=== PATIENT | male | born 1990 ===

== ENCOUNTER 2017-12-23 19:45 | Emergency (ER) | payer MEDICAID ==
[2017-12-23 19:57] VITALS: TEMP 99.7
[2017-12-23 20:32] LABS: VENOUS BLOOD GAS PO2 71 mm/Hg (30-55)
[2017-12-23 20:35] LABS: ALB/GLOB RATIO 1.2 (1.1-1.8); ALBUMIN 3.9 g/dL (3.0-4.8); ALT/SGPT 52 U/L (7-56); AST/SGOT 30 U/L (17-59); BLOOD UREA NITROGEN 17 mg/dL (7-21); CALCIUM 8.8 mg/dL (8.4-10.5); GFR AFRICAN-AMERICAN > 60; GFR NON-AFRICAN AMERICAN > 60
[2017-12-23 20:47] LABS: B-TYPE NATRIURETIC PEPTIDE 14.1 pg/mL (0-450); TROPONIN I < 0.01 ng/mL
[2017-12-23 20:57] LABS: BASO # 0.02 K/mm3 (0.0-2.0); BASO % 0.2 % (0.0-3.0); EOS # 0.2 (0.0-0.7); EOS % 2.6 % (1.5-5.0); GRAN # 4.75 (1.4-6.5); GRAN % 52.3 % (50.0-68.0); HEMOGLOBIN 13.5 g/dL (14.0-18.0); LYMPH # 3.5 (1.2-3.4); LYMPH % 38.6 % (22.0-35.0); MEAN CELL VOLUME 84.8 fl (80.0-105.0); MEAN CORPUSCULAR HEMOGLOBIN 28.8 pg (25.0-35.0); MEAN PLATELET VOLUME 10.6 fl (7.0-11.0); MONO # 0.6 (0.1-0.6); MONO % 6.3 % (1.0-6.0); RBC 4.68 10^6/uL (3.5-6.1); RED CELL DISTRIBUTION WIDTH 13.4 % (11.5-14.5); WHITE BLOOD COUNT 9.1 10^3/ul (4.5-11.0)
[2017-12-23 21:04] LABS: INR 0.97 (0.93-1.08); PARTIAL THROMBOPLASTIN TIME 29.5 Seconds (25.1-36.5); PROTHROMBIN TIME 11.1 SECONDS (9.4-12.5)
--- NOTE | 2017-12-23 21:56 | ED PDOC ---
Arrival/HPI <KaylynDimitry - Last Filed: 12/24/17 00:15> - General Historian: Patient <Cydney Lopez - Last Filed: 12/24/17 01:41> - General Chief Complaint: Shortness Of Breath Time Seen by Provider: 12/23/17 19:53 - History of Present Illness Narrative History of Present Illness (Text): 12/23/17 21:56 27yo morbidly obese male with past medical history of hypertension, sleep apnea present with complaint of palpitation. States he woke up with palpation and shortness of breath. He however denies chest pain, diaphoresis, LE edema, calf pain, fever, chills, nausea, vomiting, recent travel/surgery, dizziness, focal weakness, ripping upper back pain, fever, chills, any other complaint. ( Cydney Lopez A) Past Medical History - Provider Review Nursing Documentation Reviewed: Yes - Infectious Disease Hx of Infectious Diseases: None - Psychiatric Hx Substance Use: No - Anesthesia Hx Anesthesia: No <JessicaCydney Cotto - Last Filed: 12/24/17 01:41> Family/Social History - Physician Review Nursing Documentation Reviewed: Yes Family/Social History: Unknown Family HX Smoking Status: Never Smoked Hx Alcohol Use: Yes Frequency of alcohol use: Socially Hx Substance Use: No <JessicaCydney Cotto - Last Filed: 12/24/17 01:41> Allergies/Home Meds <Dimitry Patiño - Last Filed: 12/24/17 00:15> <JessicaCydney A - Last Filed: 12/24/17 01:41> Allergies/Adverse Reactions: Allergies No Known Allergies Allergy (Verified 12/23/17 19:51) Home Medications: Home Meds Medication Instructions Recorded Confirmed Losartan [Cozaar] 1 tab PO DAILY 12/23/17 12/23/17 Review of Systems - Physician Review All systems were reviewed & negative as marked: Yes - Review of Systems Constitutional: Normal Eyes: Normal ENT: Normal Respiratory: SOB. absent: Cough, Sputum Cardiovascular: Palpitations. absent: Chest Pain, Edema, Calf Pain, Orthopnea Gastrointestinal: Normal Genitourinary Male: Normal Musculoskeletal: Normal Skin: Normal Neurological: Normal Endocrine: Normal Hemo/Lymphatic: Normal Psychiatric: Normal <Cydney Lopez Yadiel - Last Filed: 12/24/17 01:41> Physical Exam Vital Signs Reviewed: Yes Temperature: Afebrile Blood Pressure: Normal Pulse: Regular Respiratory Rate: Normal Appearance: Positive for: Well-Appearing, Non-Toxic, Comfortable Pain Distress: None Mental Status: Positive for: Alert and Oriented X 3 - Systems Exam Head: Present: Atraumatic, Normocephalic Pupils: Present: PERRL Extroacular Muscles: Present: EOMI Conjunctiva: Present: Normal Mouth: Present: Moist Mucous Membranes Neck: Present: Normal Range of Motion Respiratory/Chest: Present: Clear to Auscultation, Good Air Exchange. No: Respiratory Distress, Accessory Muscle Use, Wheezes, Decreased Breath Sounds, Rales, Retracting, Rhonchi, Tachypneic Cardiovascular: Present: Regular Rate and Rhythm, Normal S1, S2. No: Murmurs Abdomen: No: Tenderness, Distention, Peritoneal Signs Back: Present: Normal Inspection Upper Extremity: Present: Normal Inspection. No: Cyanosis, Edema Lower Extremity: Present: Normal Inspection. No: Edema Neurological: Present: GCS=15, CN II-XII Intact, Speech Normal Skin: Present: Warm, Dry, Normal Color. No: Rashes Psychiatric: Present: Alert, Oriented x 3, Normal Insight, Normal Concentration <Cyndey Lopez A - Last Filed: 12/24/17 01:41> Vital Signs Temp Pulse Resp BP Pulse Ox 12/23/17 22:09 90 18 137/88 100 12/23/17 19:52 99.7 F H 103 H 21 145/85 98 Medical Decision Making <Dimitry Patiño - Last Filed: 12/24/17 00:15> <Cydney Lopez - Last Filed: 12/24/17 01:41> ED Course and Treatment: 12/24/17 01:39 PT in Emergency department for stated history. He was not in any distress in Emergency department. Hemodynamically stable. Lab was unremarkable EKG Sinus tacy @104bpm NSTEMI Result was DW the pt. He denied chest pain in Emergency department. He was advised to f/u with a clutch specialist for possible holter monitor. (Cydney Lopez A) - Lab Interpretations Lab Results: 12/23/17 20:10 12/23/17 20:10 Lab Results 12/23/17 20:10: Sodium 141, Chloride 103, Potassium 3.8, Carbon Dioxide 28, Anion Gap 14, BUN 17, Creatinine 0.7 L, Est GFR ( Amer) > 60, Est GFR ( Non-Af Amer) > 60, Random Glucose 127 H, Calcium 8.8, Magnesium 2.1, Total Bilirubin 0.4, AST 30, ALT 52, Alkaline Phosphatase 72, Lactate Dehydrogenase 561, Total Creatine Kinase 79, Troponin I < 0.01, NT-Pro-B Natriuret Pep 14.1, Total Protein 7.1, Albumin 3.9, Globulin 3.2, Albumin/Globulin Ratio 1.2 12/23/17 20:10: pO2 71 H, VBG pH 7.40, VBG pCO2 48.0, VBG HCO3 29.7 H, VBG Total CO2 31.2 H, VBG O2 Sat (Calc) 96.3 H, VBG Base Excess 4.0 H, VBG Potassium 3.7, Sodium 140.0, Chloride 105.0, Glucose 125 H, Lactate 1.3, FiO2 21.0, Venous Blood Potassium 3.7 12/23/17 20:10: PT 11.1, INR 0.97, APTT 29.5, D-Dimer, Quantitative 90 12/23/17 20:10: WBC 9.1, RBC 4.68, Hgb 13.5 L, Hct 39.7 L, MCV 84.8, MCH 28.8, MCHC 34.0, RDW 13.4, Plt Count 280, MPV 10.6, Gran % 52.3, Lymph % (Auto) 38.6 H , [place] % (Auto) 6.3 H, Eos % (Auto) 2.6, Baso % (Auto) 0.2, Gran # 4.75, Lymph # (Auto) 3.5 H, [place] # (Auto) 0.6, Eos # (Auto) 0.2, Baso # (Auto) 0.02 - RAD Interpretation Radiology Orders: 12/23/17 20:35 CHEST PORTABLE [RAD] Stat - PA / YARD PILOT / Resident Statement / has reviewed & agrees with the documentation as recorded. <Dimitry Patiño - Last Filed: 12/24/17 00:15> Disposition/Present on Arrival <Dimitry Patiño - Last Filed: 12/24/17 00:15> - Present on Arrival Any Indicators Present on Arrival: No History of DVT/PE: No History of Uncontrolled Diabetes: No Urinary Catheter: No History of Decub. Ulcer: No History Surgical Site Infection Following: None - Disposition Have Diagnosis and Disposition been Completed?: Yes Disposition Time: 22:00 Patient Plan: Discharge <Cydney Lopez - Last Filed: 12/24/17 01:41> - Disposition Diagnosis: Palpitation Disposition: HOME/ ROUTINE Patient Problems: Current Active Problems Problem Status Onset Palpitation Acute Condition: STABLE Discharge Instructions (ExitCare): Palpitations Additional Instructions: Follow up with your Doctor/Petrography Teacher Return to Emergency department for any new or worsening symptoms Referrals: Pavan Vidales MD [Staff Provider] - Follow up with primary Forms: [employer] ([place])
[2017-12-23 22:10] VITALS: BP 137/88; PULSE 90; RESP 18; O2SAT 100
--- NOTE | 2017-12-24 10:46 | RAD ---
Date of service: 12/23/2017 HISTORY: Palpitations. COMPARISON: No prior. FINDINGS: LUNGS: No active pulmonary disease. PLEURA: No significant pleural effusion identified, no pneumothorax apparent. CARDIOVASCULAR: Normal. OSSEOUS STRUCTURES: No significant abnormalities. VISUALIZED UPPER ABDOMEN: Normal. OTHER FINDINGS: None. IMPRESSION: No active disease.
--- NOTE | 2017-12-24 12:56 | CARD ---
APPROVED REPORT Date of service: 12/23/2017 EKG Measurement Heart [id number] AL [id number] <Conclusion> Sinus tachycardia Nonspecific ST abnormality Abnormal ECG
== END 2017-12-23 22:30 | disposition home or self-care (01) ==
LOC: ED 19:45
DX: R00.2 Palpitations (principal); I10 Essential (primary) hypertension